=== PATIENT | female | born 1955 | race Caucasian/White ===

== ENCOUNTER 2018-11-16 07:23 | Day surgery (SDC) | payer BC ==
[~2018-11-16 07:23] MED LIST: CEFAZOLIN 2 Gram 2 GM/50 ML BAG IVPB ONE
== END 2018-11-16 10:45 | disposition home or self-care (01) ==
LOC: SUR 07:23
PROVIDERS: ATTEND Specialist
DX: R35.0 Frequency of micturition (principal); N81.11 Cystocele, midline; N81.3 Complete uterovaginal prolapse; E78.00 Pure hypercholesterolemia, unspecified; K21.9 Gastro-esophageal reflux disease without esophagitis
CPT/HCPCS: 52000; 00910; J0690